=== PATIENT | male | born 1995 | race Two or more races ===

== ENCOUNTER 2016-07-25 17:06 | Emergency (ER) | payer OTHER ==
[~2016-07-25] VITALS: Ht 170.2 cm; Wt 90.7 kg
[2016-07-25] MEDS ORDERED: CEPH500C PO (17:16)
[2016-07-25] MEDS ORDERED: PAXI30TA11 PO (17:16)
[2016-07-25] MEDS ORDERED: ONDANSETRON 4 MG ORAL DISINTEGRATING TAB (S0181) PO ONE (18:15)
[2016-07-25] MEDS ORDERED: NORCO, ANEXSIA 5/325MG TABLET (HYDROcodone/ACETAMINOPHEN) PO ONE (18:15)
--- NOTE | 2016-07-25 18:45 | REP ---
Clinical: Left lower quadrant pain and swelling. Technique: Real time anderson scale and color evaluation using linear high frequency transducer. Findings: Directed ultrasound examination of the subcutaneous tissues in the left lower quadrant at the site of maximal erythematous changes demonstrates subcutaneous edema and small mildly complex central fluid collection measuring approximately 2.4 x 0.3 x 0.2 cm which may reflect small forming abscess. Impression: Subcutaneous edema with small central fluid collection may reflect forming abscess. Signed by [place] Tierney MD 07/25/2016 06:37 P
[2016-07-25 18:53] VITALS: BP 147/86
[2016-07-25] MEDS ORDERED: BACT800T5 PO (18:57)
[2016-07-25] MEDS ORDERED: CLOTCRE3 TOP (18:57)
== END 2016-07-25 19:09 | disposition home or self-care (01) ==
LOC: M ED 18:08
DX: B35.9 Dermatophytosis, unspecified (principal); L03.319 Cellulitis of trunk, unspecified; Z87.891 Personal history of nicotine dependence; Z79.899 Other long term (current) drug therapy; F32.9 Major depressive disorder, single episode, unspecified

== ENCOUNTER 2016-12-08 12:07 | Emergency (ER) | payer OTHER ==
[~2016-12-08] VITALS: Ht 170.2 cm; Wt 95.9 kg
[2016-12-08 12:07] VITALS: BP 126/80
[~2016-12-08 12:07] MED LIST: BACT800T5 PO; CEPH500C PO; CLOTCRE3 TOP; PAXI30TA11 PO
[2016-12-08] MEDS ORDERED: FLUO20CA19 (12:21)
[2016-12-08] MEDS ORDERED: ZYPR1TAB2 (12:21)
[2016-12-08] MEDS ORDERED: ONDANSETRON 4 MG ORAL DISINTEGRATING TAB (S0181) PO ONE (13:15)
[2016-12-08] MEDS ORDERED: NORCO, ANEXSIA 5/325MG TABLET (HYDROcodone/ACETAMINOPHEN) PO ONE (13:15)
--- NOTE | 2016-12-08 13:56 | REP ---
SCROTAL ULTRASOUND: 12/08/2016 CLINICAL HISTORY: Left testicular pain 21-year-old male. Had back pain yesterday. FINDINGS: No prior study. The right testis 4.8 x 2.3 x 3.1 cm and the left testis 4.7 x 2.1 x 3.3 cm. There is a very subtle heterogeneity to the testicular echotexture without discrete mass, nodule or cyst. 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 There is a left-sided hydrocele. Doppler tracing shows resistive index of 0.68 on the right and 0.61 on the left. There is no epididymal head cysts and the CC diameter of the right epididymal head 10.1 mm, and on the left 11.4 mm. No varicocele. No evidence of torsion or mass. IMPRESSION: 1. Small hydrocele on the left. There is subtle heterogeneity of echotexture of the testes with questionable microlithiasis. No cyst, mass or other abnormality. Normal Doppler blood flow. Suggest follow-up testicular ultrasound in 6 months, unless symptoms require earlier re-evaluation. No definite epididymitis, mass or other acute finding. Signed by Sriram Suazo MD 12/08/2016 06:34 P
[2016-12-08] MEDS ORDERED: NORCOTAB PO (14:17)
[2016-12-08] MEDS ORDERED: IBUP-1022 PO (14:17)
== END 2016-12-08 14:31 | disposition home or self-care (01) ==
LOC: M ED 12:07
DX: N43.3 Hydrocele, unspecified (principal); F33.8 Other recurrent depressive disorders; Z79.899 Other long term (current) drug therapy